=== PATIENT | female | born 1950 | race Caucasian/White ===

== ENCOUNTER → 2016-11-24 | Outpatient (CLI) | payer MEDICARE, OTHER ==
[2016-11-24 07:23] LABS: MEAN CORPUSCULAR HEMOGLOBIN 30.5 pg (27.0-33.0); MEAN CORPUSCULAR HGB CONC 35.7 g/dl (32.0-36.5); MEAN CORPUSCULAR VOLUME 85.4 fl (80.0-96.0); RED CELL DISTRIBUTION WIDTH 13.9 % (11.5-14.5); WHITE BLOOD COUNT 7.1 K/mm3 (4.0-10.0)
[2016-11-24 07:57] LABS: ALBUMIN 3.5 GM/DL (3.2-5.2); ALBUMIN/GLOBULIN RATIO 0.95 (1.00-1.93); ALKALINE PHOSPHATASE 51 U/L (45-117); ALT/SGPT 27 U/L (12-78); ANION GAP 9 MEQ/L (8-16); AST/SGOT 16 U/L (15-37); BILIRUBIN,TOTAL 0.4 MG/DL (0.2-1.0); BLOOD UREA NITROGEN 19 MG/DL (7-18); CALCIUM LEVEL 8.8 MG/DL (8.8-10.2); CARBON DIOXIDE LEVEL 24 MEQ/L (21-32); CHLORIDE LEVEL 112 MEQ/L (98-107); CHOLESTEROL LEVEL 181 MG/DL (<200); CREATININE FOR GFR 0.97 MG/DL (0.55-1.02); GLOMERULAR FILTRATION RATE > 60.0 (>45); GLUCOSE, FASTING 108 MG/DL (80-110); POTASSIUM SERUM 4.8 MEQ/L (3.5-5.1); SODIUM LEVEL 145 MEQ/L (136-145); TOTAL PROTEIN 7.2 GM/DL (6.4-8.2); TRIGLYCERIDES LEVEL 168 MG/DL (<150)
== END ==
LOC: M LAB 06:42
PROVIDERS: ATTEND Nurse Practitioner Adult Health
DX: Z00.00 Encounter for general adult medical examination without abnormal findings (principal); R73.01 Impaired fasting glucose; R78.6 Finding of steroid agent in blood

== ENCOUNTER → 2017-07-13 | Outpatient (REF) | payer OTHER ==
[2017-07-17 14:13] LABS: HPV HYBRID CAPTURE II Negative (Negative)
== END ==
LOC: M SFHCWAGY 15:56
DX: Z12.4 Encounter for screening for malignant neoplasm of cervix (principal)

== ENCOUNTER → 2017-07-13 | Outpatient (CLI) | payer OTHER, MEDICARE | LOC: M WHC 14:26 | DX: Z12.31 Encounter for screening mammogram for malignant neoplasm of breast (principal); Z78.0 Asymptomatic menopausal state ==

== ENCOUNTER → 2017-08-09 | Outpatient (CLI) | payer OTHER ==
[2017-08-09 14:08] LABS: ANION GAP 7 MEQ/L (8-16); BLOOD UREA NITROGEN 21 MG/DL (7-18); CALCIUM LEVEL 9.3 MG/DL (8.8-10.2); CARBON DIOXIDE LEVEL 27 MEQ/L (21-32); CHLORIDE LEVEL 108 MEQ/L (98-107); GLOMERULAR FILTRATION RATE > 60.0 (>45); GLUCOSE, FASTING 133 MG/DL (70-100); MAGNESIUM LEVEL 1.9 MG/DL (1.8-2.4); POTASSIUM SERUM 3.8 MEQ/L (3.5-5.1); SODIUM LEVEL 142 MEQ/L (136-145)
== END ==
LOC: M LAB 12:42
DX: I10 Essential (primary) hypertension (principal)
CPT/HCPCS: 83735

== ENCOUNTER → 2017-11-16 | Outpatient (CLI) | payer OTHER ==
[2017-11-16 09:41] LABS: HEMATOCRIT 37.3 % (36.0-47.0); HEMOGLOBIN 12.9 g/dl (12.0-15.5); MEAN CORPUSCULAR HEMOGLOBIN 29.7 pg (27.0-33.0); MEAN CORPUSCULAR HGB CONC 34.6 g/dl (32.0-36.5); MEAN CORPUSCULAR VOLUME 85.7 fl (80.0-96.0); PLATELET COUNT, AUTOMATED 184 10^3/uL (150-450); RED BLOOD COUNT 4.35 10^6/uL (4.00-5.40); RED CELL DISTRIBUTION WIDTH 13.2 % (11.5-14.5); WHITE BLOOD COUNT 8.1 10^3/uL (4.0-10.0)
[2017-11-16 10:06] LABS: ESTIMATED AVERAGE GLUCOSE 120 MG/DL (60-110); HEMOGLOBIN A1c 5.8 %
[2017-11-16 10:11] LABS: ALBUMIN 3.7 GM/DL (3.2-5.2); ALBUMIN/GLOBULIN RATIO 1.09 (1.00-1.93); ALKALINE PHOSPHATASE 45 U/L (45-117); ALT/SGPT 31 U/L (12-78); ANION GAP 8 MEQ/L (8-16); AST/SGOT 17 U/L (7-37); BILIRUBIN,TOTAL 0.5 MG/DL (0.2-1.0); BLOOD UREA NITROGEN 23 MG/DL (7-18); CALCIUM LEVEL 8.9 MG/DL (8.8-10.2); CARBON DIOXIDE LEVEL 28 MEQ/L (21-32); CHLORIDE LEVEL 107 MEQ/L (98-107); CHOLESTEROL LEVEL 169 MG/DL (<200); CHOLESTEROL RISK RATIO 4.567 (<5); CREATININE FOR GFR 1.01 MG/DL (0.55-1.30); GLOMERULAR FILTRATION RATE 58.2 (>45); GLUCOSE, FASTING 113 MG/DL (70-100); HDL CHOLESTEROL 37 MG/DL (>40); NON-HDL-C 132 MG/DL; SODIUM LEVEL 143 MEQ/L (136-145); TOTAL PROTEIN 7.1 GM/DL (6.4-8.2); TRIGLYCERIDES LEVEL 240 MG/DL (<150)
== END ==
LOC: M LAB 08:57
DX: R73.01 Impaired fasting glucose (principal); E78.6 Lipoprotein deficiency

== ENCOUNTER → 2018-01-11 | Outpatient (REF) | payer OTHER | LOC: M LAB REF 16:27 | DX: R30.0 Dysuria (principal) | CPT/HCPCS: 87086 ==

== ENCOUNTER → 2018-07-15 | Outpatient (CLI) | payer OTHER ==
--- NOTE | 2018-07-15 14:53 | REPMRS ---
Patient History The patient states she had a clinical breast exam in 07/2018. No known family history of cancer. Digital Woman Screen Mammo: July 15, 2018 - Exam #: [id number] Bilateral CC and MLO view(s) were taken. Technologist: Minerva Crespo, Technologist Prior study comparison: July 13, 2017, digital woman screen mammo performed at [facility]. February 09, 2016, digital woman screen mammo performed at [facility]. November 13, 2014, digital woman screen mammo performed at [facility]. FINDINGS: There are scattered fibroglandular densities. There has been no change in the appearance of the mammogram from the prior studies. There is a mild amount of scattered fibroglandular density which is fairly symmetric. There is no interval development of dominant mass, architectural distortion, or clustered microcalcification suggestive of malignancy. 3-D tomosynthesis shows no additional findings. Assessment: BI-RADS/ACR category 1 mammogram. Negative Mammogram. Recommendation Routine screening mammogram of both breasts in 1 year (for women over age 40). This patient's Lifetime Breast Cancer RIsk is estimated at 7.4 %. This mammogram was interpreted with the aid of an FDA-approved computer-aided dectection system. Electronically Signed By: Nabeel Lazcano MD 07/15/18 [id number]
== END ==
LOC: M WHC 13:22
PROVIDERS: ATTEND Nurse Practitioner Family
DX: Z12.31 Encounter for screening mammogram for malignant neoplasm of breast (principal)

== ENCOUNTER → 2018-12-11 | Outpatient (REF) | payer OTHER ==
[2018-12-11 12:56] LABS: HEMOGLOBIN A1c 5.9 %
[2018-12-11 12:58] LABS: ALBUMIN 3.6 GM/DL (3.2-5.2); ALT/SGPT 26 U/L (12-78); BILIRUBIN,TOTAL 0.5 MG/DL (0.2-1.0); BLOOD UREA NITROGEN 23 MG/DL (7-18); CALCIUM LEVEL 9.5 MG/DL (8.8-10.2); CARBON DIOXIDE LEVEL 25 MEQ/L (21-32); CHLORIDE LEVEL 107 MEQ/L (98-107); CHOLESTEROL LEVEL 175 MG/DL (<200); CHOLESTEROL RISK RATIO 5.303 (<5); CREATININE FOR GFR 0.93 MG/DL (0.55-1.30); GLOMERULAR FILTRATION RATE > 60.0 (>45); GLUCOSE, FASTING 114 MG/DL (70-100); HDL CHOLESTEROL 33 MG/DL (>40); LDL CHOLESTEROL 102 MG/DL (<100); NON-HDL-C 142 MG/DL; POTASSIUM SERUM 4.1 MEQ/L (3.5-5.1); SODIUM LEVEL 142 MEQ/L (136-145); TOTAL PROTEIN 7.1 GM/DL (6.4-8.2); TRIGLYCERIDES LEVEL 201 MG/DL (<150)
== END ==
LOC: M LABDRWAD 12:18 → M SFHCPLAZ 12:18
PROVIDERS: ATTEND Nurse Practitioner Adult Health
DX: Z00.00 Encounter for general adult medical examination without abnormal findings (principal); R73.01 Impaired fasting glucose; E78.6 Lipoprotein deficiency

== ENCOUNTER → 2019-11-24 | Outpatient (CLI) | payer MEDICARE ==
[2019-11-24 17:00] LABS: HEMOGLOBIN A1c 5.5 %
[2019-11-24 17:06] LABS: ALBUMIN 3.8 GM/DL (3.2-5.2); BILIRUBIN,TOTAL 0.4 MG/DL (0.2-1.0); CHOLESTEROL RISK RATIO 5.027 (<5); CREATININE FOR GFR 1.04 MG/DL (0.55-1.30); GLOMERULAR FILTRATION RATE 55.9 (>45); POTASSIUM SERUM 4.1 MEQ/L (3.5-5.1); TOTAL PROTEIN 7.1 GM/DL (6.4-8.2)
== END ==
LOC: M PLALAB 10:42
PROVIDERS: ATTEND Nurse Practitioner Adult Health
DX: R73.01 Impaired fasting glucose (principal); I10 Essential (primary) hypertension; E78.6 Lipoprotein deficiency; G04.39 Other acute necrotizing hemorrhagic encephalopathy
CPT/HCPCS: 36415; 80053; 80061; 83036; G0402

== ENCOUNTER → 2021-01-26 | Outpatient (CLI) | payer MEDICARE, OTHER ==
--- NOTE | 2021-01-27 10:57 | ECHO ---
ECHOCARDIOGRAM DATE OF PROCEDURE: 01/26/2021 Age: 70 Gender: Female Height: 60 inches Weight: 166 pounds Body Surface Area: 1.72 sq m Outpatient REFERRING PHYSICIAN: Bhargavi Chi NP INDICATION: Heart murmur MEASUREMENTS: 2D Measurements: RV - 2.7 cm LV - 4.8 cm Septum 0.9 cm Posterior wall 0.9 cm Aortic Root 3.0 cm LA - 3.7 cm LVEF 75% Doppler Measurements: AV - 1.89 m/s LVOT - 1.08 m/s LVOT diameter 1.7 cm MV-E 73, A 117, E/A ratio 0.7 Early mitral deceleration time 310 msec E prime medial 4.4, A prime medial 6.7, E prime lateral 5.8 Average E/E prime ratio 14.3/PCWP 19.6 mmHg PV 0.9 m/s Pulmonary artery acceleration time 113 msec RVSP 30 mmHg IVC - 1.6 cm COMMENTS: Normal sinus rhythm without intraventricular conduction disturbance. 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 M-mode and 2-dimensional echocardiography was performed along with pulse, continuous wave, color flow, and tissue Doppler studies. Normal left ventricular size, wall thickness and hyperkinetic wall motion. Normal left atrial size with grade 1 left ventricular (LV) diastolic dysfunction and current estimated mean left atrial pressure marginally increased. Normal right heart chamber sizes and motion with Doppler evidence of borderline pulmonary hypertension. Normal inferior vena cava (IVC) size with reduced respiratory collapse in keeping with central venous pressure upper limits of normal. Normal aortic dimensions. Mild aortic valvular sclerosis without stenosis or apparent insufficiency. Mild degenerative changes of the mitral valvular apparatus with adequate leaflet excursion and no posterior systolic buckling. Very mild mitral insufficiency. Normal-appearing tricuspid valve with very mild insufficiency. No apparent intracardiac mass or pericardial effusion.
== END ==
LOC: M CARPUL 09:37
PROVIDERS: ATTEND Nurse Practitioner Adult Health
DX: R01.1 Cardiac murmur, unspecified (principal); I34.0 Nonrheumatic mitral (valve) insufficiency

== ENCOUNTER → 2021-01-28 | Outpatient (CLI) | payer MEDICARE ==
[2021-01-28 11:17] LABS: HEMOGLOBIN A1c 5.7 %
[2021-01-28 11:19] LABS: ALBUMIN 3.6 GM/DL (3.2-5.2); BILIRUBIN,TOTAL 0.4 MG/DL (0.2-1.0); CALCIUM LEVEL 9.4 MG/DL (8.8-10.2); CHOLESTEROL RISK RATIO 4.675 (<5); CREATININE FOR GFR 0.98 MG/DL (0.55-1.30); GLOMERULAR FILTRATION RATE 59.7 (>39); POTASSIUM SERUM 4.1 MEQ/L (3.5-5.1); THYROID STIMULATING HORMONE 3.06 uIU/ML (0.358-3.740); TOTAL PROTEIN 6.8 GM/DL (6.4-8.2)
[2021-01-28 12:40] LABS: TOTAL 25(OH) VITAMIN D 36.6 NG/ML (30.0-100.0)
== END ==
LOC: M PLALAB 08:22
PROVIDERS: ATTEND Nurse Practitioner Adult Health
DX: R73.01 Impaired fasting glucose (principal); Z79.899 Other long term (current) drug therapy

== ENCOUNTER → 2022-01-13 | Outpatient (CLI) | payer MEDICARE | LOC: M WHC 08:24 | PROVIDERS: ATTEND Obstetrics & Gynecology | DX: Z12.31 Encounter for screening mammogram for malignant neoplasm of breast (principal) ==

== ENCOUNTER → 2022-01-19 | Outpatient (CLI) | payer MEDICARE ==
[2022-01-19 14:33] LABS: ALBUMIN 3.7 GM/DL (3.2-5.2); BILIRUBIN,TOTAL 0.5 MG/DL (0.2-1.0); CALCIUM LEVEL 9.9 MG/DL (8.8-10.2); CHOLESTEROL RISK RATIO 4.789 (<5); CREATININE FOR GFR 1.03 MG/DL (0.55-1.30); GLOMERULAR FILTRATION RATE 56.2 (>39); POTASSIUM SERUM 4.1 MEQ/L (3.5-5.1); THYROID STIMULATING HORMONE 2.68 uIU/ML (0.358-3.740); TOTAL PROTEIN 7.3 GM/DL (6.4-8.2); URIC ACID 10.3 MG/DL (2.6-6.0)
[2022-01-19 15:09] LABS: TOTAL 25(OH) VITAMIN D 50.2 NG/ML (30.0-100.0)
[2022-01-19 20:13] LABS: HEMOGLOBIN A1c 5.9 %
== END ==
LOC: M LABDRWAD 09:10
PROVIDERS: ATTEND Nurse Practitioner Adult Health
DX: R73.01 Impaired fasting glucose (principal); Z13.21 Encounter for screening for nutritional disorder; E78.6 Lipoprotein deficiency; R09.89 Other specified symptoms and signs involving the circulatory and respiratory systems; M10.9 Gout, unspecified; Z79.899 Other long term (current) drug therapy

== ENCOUNTER → 2022-05-10 | Outpatient (CLI) | payer MEDICARE ==
[~2022-05-10] MED LIST: ACET1TAB55 PO; CALC600T60 PO; CHLO25TA PO; FLAX1300 PO; OMEG10002 PO; SERT50TA29 PO; TARTCAP PO; VITMTA PO
== END ==
LOC: M LABSMTC 09:35
PROVIDERS: ATTEND Anesthesiology
DX: Z01.818 Encounter for other preprocedural examination (principal); Z11.52 Encounter for screening for COVID-19

== ENCOUNTER 2022-05-15 08:37 | Day surgery (SDC) | payer MEDICARE ==
[~2022-05-15] VITALS: Ht 152.4 cm; Wt 74.3 kg
[~2022-05-15 08:37] MED LIST changes: +NS 1,000 ML IV ONE
[2022-05-15] MEDS ORDERED: propofoL 200 MG/20 ML VIAL As Ordered ONE ×2 (10:01→10:11)
[2022-05-15] MEDS ORDERED: LIDOCAINE 2% 100MG/5ML SDV (FOR ANES.) As Ordered ONE (10:01)
[2022-05-15 10:40] VITALS: BP 155/76
== END 2022-05-15 10:56 | disposition home or self-care (01) ==
LOC: M OPP 08:37
PROVIDERS: ATTEND Internal Medicine Gastroenterology
DX: Z86.010 Personal history of colon polyps (principal); K57.30 Diverticulosis of large intestine without perforation or abscess without bleeding; K64.0 First degree hemorrhoids; G47.33 Obstructive sleep apnea (adult) (pediatric); I10 Essential (primary) hypertension; E78.00 Pure hypercholesterolemia, unspecified; Z99.89 Dependence on other enabling machines and devices; Z79.899 Other long term (current) drug therapy; Z88.1 Allergy status to other antibiotic agents; Z88.6 Allergy status to analgesic agent; Z91.040 Latex allergy status

== ENCOUNTER → 2022-06-27 | Outpatient (REF) | payer MEDICARE ==
[~2022-06-27] MED LIST changes: -NS 1,000 ML IV ONE
[2022-06-27 17:15] LABS: URIC ACID 10.3 MG/DL (3.1-7.8)
[2022-06-27 17:18] LABS: ALBUMIN 3.9 G/DL (3.2-5.2); ALKALINE PHOSPHATASE 49 U/L (46-116); ALT/SGPT 32 U/L (7.0-40); AST/SGOT 17 U/L (<34); BILIRUBIN,TOTAL 0.6 MG/DL (0.3-1.2); BLOOD UREA NITROGEN 17 MG/DL (9-23); C REACTIVE PROTEIN QUANTITATIV < 0.40 MG/DL (<1.0); CARBON DIOXIDE LEVEL 30 MMOL/L (20-31); CHLORIDE LEVEL 103 MMOL/L (98-107); CREATININE FOR GFR 0.85 MG/DL (0.55-1.30); GLOMERULAR FILTRATION RATE > 60.0 (>39); GLUCOSE, FASTING 100 MG/DL (74-106); POTASSIUM SERUM 3.9 MMOL/L (3.5-5.1); SODIUM LEVEL 141 MMOL/L (136-145); TOTAL PROTEIN 6.9 G/DL (5.7-8.2)
[2022-06-27 17:33] LABS: BASO % 0.2 % (0.0-1.0); EOS # 0.1 10^3/uL (0.0-0.5); EOS % 1.6 % (0.0-3.0); HEMATOCRIT 39.1 % (36.0-47.0); HEMOGLOBIN 13.3 g/dl (12.0-15.5); LYMPH # 2.9 10^3/uL (1.5-5.0); LYMPH % 32.2 % (24.0-44.0); MEAN CORPUSCULAR HEMOGLOBIN 29.8 pg (27.0-33.0); MEAN CORPUSCULAR VOLUME 87.5 fl (80.0-96.0); MONO # 0.7 10^3/uL (0.0-0.8); MONO % 7.8 % (2.0-8.0); NEUTROPHILS # 5.1 10^3/uL (1.5-8.5); NEUTROPHILS % 57.6 % (36.0-66.0); PLATELET COUNT, AUTOMATED 214 10^3/uL (150-450); RED BLOOD COUNT 4.47 10^6/uL (4.00-5.40); WHITE BLOOD COUNT 8.9 10^3/uL (4.0-10.0)
[2022-06-27 17:51] LABS: ERYTHROCYTE SEDIMENTATION RATE 21 mm/hr (0-30)
== END ==
LOC: M SFHCPLAZ 11:57
PROVIDERS: ATTEND Physician Assistant
DX: M10.9 Gout, unspecified (principal)

== ENCOUNTER → 2022-08-09 | Outpatient (CLI) | payer MEDICARE | LOC: M ADAMS 11:41 | PROVIDERS: ATTEND Nurse Practitioner Adult Health | DX: M19.072 Primary osteoarthritis, left ankle and foot (principal); M77.32 Calcaneal spur, left foot; M79.672 Pain in left foot ==

== ENCOUNTER → 2022-10-26 | Outpatient (CLI) | payer MEDICARE | LOC: M PLAIMG 12:25 | PROVIDERS: ATTEND Family Medicine | DX: M17.12 Unilateral primary osteoarthritis, left knee (principal) ==

== ENCOUNTER → 2023-01-22 | Outpatient (REF) | payer MEDICARE ==
[2023-01-23 00:18] LABS: URIC ACID 6.2 MG/DL (3.1-7.8)
[2023-01-23 00:27] LABS: ALBUMIN 3.8 G/DL (3.2-5.2); ALKALINE PHOSPHATASE 53 U/L (46-116); ALT/SGPT 23 U/L (7.0-40); AST/SGOT 17 U/L (<34); BILIRUBIN,TOTAL 0.4 MG/DL (0.3-1.2); BLOOD UREA NITROGEN 21 MG/DL (9-23); CALCIUM LEVEL 9.7 MG/DL (8.3-10.6); CARBON DIOXIDE LEVEL 27 MMOL/L (20-31); CHLORIDE LEVEL 104 MMOL/L (98-107); CHOLESTEROL LEVEL 170 MG/DL (<200); CHOLESTEROL RISK RATIO 4.69 (<5); CREATININE FOR GFR 0.84 MG/DL (0.55-1.30); GLOMERULAR FILTRATION RATE > 60.0 (>39); GLUCOSE, FASTING 136 MG/DL (74-106); HDL CHOLESTEROL 36.2 MG/DL (>40); LDL CHOLESTEROL 73.2 MG/DL (<100); NON-HDL-C 133.8 MG/DL; POTASSIUM SERUM 3.4 MMOL/L (3.5-5.1); SODIUM LEVEL 140 MMOL/L (136-145); THYROID STIMULATING HORMONE 3.832 uIU/ML (0.55-4.78); TOTAL 25(OH) VITAMIN D 45.8 NG/ML (20.0-100.0); TOTAL PROTEIN 6.9 G/DL (5.7-8.2); TRIGLYCERIDES LEVEL 303 MG/DL (<150)
[2023-01-23 00:42] LABS: HEMOGLOBIN A1c 5.4 % (4.0-6.0)
== END ==
LOC: M SFHCPLAZ 13:35
PROVIDERS: ATTEND Nurse Practitioner Adult Health
DX: R73.01 Impaired fasting glucose (principal); E78.6 Lipoprotein deficiency; Z13.29 Encounter for screening for other suspected endocrine disorder; M10.9 Gout, unspecified; Z13.21 Encounter for screening for nutritional disorder; Z79.899 Other long term (current) drug therapy

== ENCOUNTER → 2023-08-01 | Outpatient (REF) | payer MEDICARE ==
[2023-08-01 14:24] LABS: URIC ACID 6.3 MG/DL (3.1-7.8)
[2023-08-01 14:27] LABS: ALBUMIN 3.8 G/DL (3.2-5.2); ALKALINE PHOSPHATASE 50 U/L (46-116); ALT/SGPT 32 U/L (7.0-40); AST/SGOT 19 U/L (<34); BILIRUBIN,TOTAL 0.4 MG/DL (0.3-1.2); BLOOD UREA NITROGEN 26 MG/DL (9-23); CALCIUM LEVEL 9.2 MG/DL (8.3-10.6); CARBON DIOXIDE LEVEL 28 MMOL/L (20-31); CHLORIDE LEVEL 104 MMOL/L (98-107); CHOLESTEROL LEVEL 173 MG/DL (<200); CHOLESTEROL RISK RATIO 4.55 (<5); CREATININE FOR GFR 0.87 MG/DL (0.55-1.30); GLOMERULAR FILTRATION RATE > 60.0 (>39); GLUCOSE, FASTING 133 MG/DL (74-106); LDL CHOLESTEROL 95.2 MG/DL (<100); POTASSIUM SERUM 3.9 MMOL/L (3.5-5.1); SODIUM LEVEL 140 MMOL/L (136-145); TOTAL PROTEIN 6.7 G/DL (5.7-8.2); TRIGLYCERIDES LEVEL 199 MG/DL (<150)
[2023-08-01 14:36] LABS: HEMOGLOBIN A1c 6.1 % (4.0-6.0)
== END ==
LOC: M SFHCPLAZ 08:19
PROVIDERS: ATTEND Nurse Practitioner Adult Health
DX: M10.9 Gout, unspecified (principal); E78.6 Lipoprotein deficiency; R73.01 Impaired fasting glucose

== ENCOUNTER → 2024-02-12 | Outpatient (REF) | payer MEDICARE ==
[2024-02-12 14:26] LABS: URIC ACID 5.9 MG/DL (3.1-7.8)
[2024-02-12 14:29] LABS: ALBUMIN 3.7 G/DL (3.2-5.2); ALKALINE PHOSPHATASE 49 U/L (35-104); ALT/SGPT 24 U/L (7.0-40); AST/SGOT 15 U/L (<34); BILIRUBIN,TOTAL 0.5 MG/DL (0.3-1.2); BLOOD UREA NITROGEN 23 MG/DL (9-23); CALCIUM LEVEL 10.3 MG/DL (8.3-10.6); CARBON DIOXIDE LEVEL 29 MMOL/L (20-31); CHLORIDE LEVEL 106 MMOL/L (98-107); CHOLESTEROL LEVEL 179 MG/DL (<200); CHOLESTEROL RISK RATIO 4.86 (<5); CREATININE FOR GFR 0.88 MG/DL (0.55-1.30); GLOMERULAR FILTRATION RATE > 60.0 (>39); GLUCOSE, FASTING 126 MG/DL (74-106); HDL CHOLESTEROL 36.8 MG/DL (>40); NON-HDL-C 142.2 MG/DL; POTASSIUM SERUM 4.2 MMOL/L (3.5-5.1); SODIUM LEVEL 141 MMOL/L (136-145); TOTAL PROTEIN 7.1 G/DL (5.7-8.2); TRIGLYCERIDES LEVEL 206 MG/DL (<150)
[2024-02-12 14:30] LABS: FREE T4 1.06 NG/DL (0.89-1.76); THYROID STIMULATING HORMONE 3.415 uIU/ML (0.55-4.78); TOTAL 25(OH) VITAMIN D 40.6 NG/ML (20.0-100.0)
[2024-02-12 15:24] LABS: HEMOGLOBIN A1c 5.8 % (4.0-6.0)
== END ==
LOC: M SFHCPLAZ 08:35
PROVIDERS: ATTEND Nurse Practitioner Adult Health
DX: Z00.00 Encounter for general adult medical examination without abnormal findings (principal); M10.9 Gout, unspecified; R73.01 Impaired fasting glucose; E78.6 Lipoprotein deficiency; Z13.21 Encounter for screening for nutritional disorder

== ENCOUNTER → 2024-02-15 | Outpatient (CLI) | payer MEDICARE | LOC: M WHC 14:52 | PROVIDERS: ATTEND Nurse Practitioner Adult Health | DX: Z12.31 Encounter for screening mammogram for malignant neoplasm of breast (principal); R92.323 Mammographic fibroglandular density, bilateral breasts ==

== ENCOUNTER → 2024-08-13 | Outpatient (REF) | payer MEDICARE ==
[2024-08-13 14:10] LABS: ALBUMIN 3.8 G/DL (3.2-5.2); BILIRUBIN,TOTAL 0.4 MG/DL (0.3-1.2); CALCIUM LEVEL 9.7 MG/DL (8.3-10.6); CREATININE FOR GFR 0.81 MG/DL (0.55-1.30); GLOMERULAR FILTRATION RATE 76.6 (>39); POTASSIUM SERUM 4.3 MMOL/L (3.5-5.1); TOTAL PROTEIN 6.9 G/DL (5.7-8.2)
[2024-08-13 14:29] LABS: HEMOGLOBIN A1c 6.2 % (4.0-6.0)
== END ==
LOC: M LABDRWAD 13:06
PROVIDERS: ATTEND Nurse Practitioner Adult Health
DX: R09.89 Other specified symptoms and signs involving the circulatory and respiratory systems (principal); R73.01 Impaired fasting glucose

== ENCOUNTER → 2024-12-18 | Outpatient (CLI) | payer MEDICARE | LOC: M ADAMS 10:37 | PROVIDERS: ATTEND Family Medicine | DX: M25.552 Pain in left hip (principal); M16.12 Unilateral primary osteoarthritis, left hip; M51.35 Other intervertebral disc degeneration, thoracolumbar region; M51.369 Other intervertebral disc degeneration, lumbar region without mention of lumbar back pain or lower extremity pain ==

== ENCOUNTER → 2025-01-15 | Outpatient (REF) | payer MEDICARE ==
[2025-01-15 14:05] LABS: ALT/SGPT 17.0 U/L (7.0-40); AST/SGOT 17.0 U/L (<34); CALCIUM LEVEL 9.8 MG/DL (8.3-10.6); CARBON DIOXIDE LEVEL 27.0 MMOL/L (20-31); CHLORIDE LEVEL 105.0 MMOL/L (98-107); CHOLESTEROL LEVEL 175.0 MG/DL (<200); CHOLESTEROL RISK RATIO 4.79 (<5); CREATININE FOR GFR 0.89 MG/DL (0.55-1.30); GLOMERULAR FILTRATION RATE 68.0 (>39); LDL CHOLESTEROL 95.7 MG/DL (<100); NON-HDL-C 138.5 MG/DL; POTASSIUM SERUM 4.5 MMOL/L (3.5-5.1); SODIUM LEVEL 144.0 MMOL/L (136-145); TRIGLYCERIDES LEVEL 214.0 MG/DL (<150)
[2025-01-15 14:06] LABS: FREE T4 1.15 NG/DL (0.89-1.76)
[2025-01-15 14:28] LABS: ESTIMATED AVERAGE GLUCOSE 126.0 MG/DL (60-110)
== END ==
LOC: M SFHCPLAZ 08:44
PROVIDERS: ATTEND Nurse Practitioner Adult Health
DX: Z00.00 Encounter for general adult medical examination without abnormal findings (principal); I10 Essential (primary) hypertension; E78.6 Lipoprotein deficiency; R73.01 Impaired fasting glucose; M10.9 Gout, unspecified

== ENCOUNTER → 2025-01-28 | Outpatient (CLI) | payer MEDICARE | LOC: M PLAIMG 12:17 | PROVIDERS: ATTEND Family Medicine | DX: D18.09 Hemangioma of other sites (principal); M51.360 Other intervertebral disc degeneration, lumbar region with discogenic back pain only; M24.28 Disorder of ligament, vertebrae; M47.816 Spondylosis without myelopathy or radiculopathy, lumbar region; M48.061 Spinal stenosis, lumbar region without neurogenic claudication ==

== ENCOUNTER → 2025-02-17 | Outpatient (CLI) | payer MEDICARE | LOC: M WHC 09:18 | PROVIDERS: ATTEND Nurse Practitioner Family | DX: Z12.31 Encounter for screening mammogram for malignant neoplasm of breast (principal) ==